=== PATIENT | male | born 1990 | race Caucasian/White ===

== ENCOUNTER 2019-08-02 09:22 | Day surgery (SDC) | payer OTHER ==
[2019-08-02] MEDS ORDERED: LABETALOL HCL 20MG INJ (11:27)
[2019-08-02] MEDS ORDERED: MIDAZOLAM 1 MG/ML 2 ML INJ ×2 (11:57)
[2019-08-02] MEDS ORDERED: FENTAnyl 50 MCG/ML VIAL (11:57)
== END 2019-08-02 14:19 | disposition home or self-care (01) ==
LOC: GIL 09:22
DX: Z12.11 Encounter for screening for malignant neoplasm of colon (principal); K62.5 Hemorrhage of anus and rectum; I10 Essential (primary) hypertension; Z86.73 Personal history of transient ischemic attack (TIA), and cerebral infarction without residual deficits
CPT/HCPCS: 45378